=== PATIENT | male | born 1985 | race Caucasian/White ===

== ENCOUNTER 2023-02-19 22:18 | Emergency (ER) | payer BC, OTHER ==
[~2023-02-19] VITALS: Ht 182.9 cm; Wt 104.5 kg
[2023-02-19] MEDS ORDERED: MORPHINE 4 MG/ML 1ML VIAL IV PRN (23:40)
[2023-02-19] MEDS ORDERED: ONDANSETRON 4MG 2ML VIAL IV ONE (23:40)
[2023-02-19 23:44] LABS: LIPASE 41 U/L (12-53)
[2023-02-19 23:46] LABS: ALBUMIN 4.5 G/DL (3.2-5.2); ALKALINE PHOSPHATASE 119 U/L (46-116); ALT/SGPT 49 U/L (7.0-40); AST/SGOT 22 U/L (<34); BILIRUBIN,DIRECT 0.2 MG/DL (<0.4); BILIRUBIN,TOTAL 0.8 MG/DL (0.3-1.2); BLOOD UREA NITROGEN 12 MG/DL (9-23); CALCIUM LEVEL 9.6 MG/DL (8.5-10.1); CARBON DIOXIDE LEVEL 28 MMOL/L (20-31); CHLORIDE LEVEL 100 MMOL/L (98-107); CK-MB VALUE MASS 1.6 NG/ML (<3.6); CPK CREATINE PHOSPHOKINASE 199 U/L (46-171); CREATININE FOR GFR 0.89 MG/DL (0.70-1.30); GLOMERULAR FILTRATION RATE > 60.0 (>60); GLUCOSE, FASTING 124 MG/DL (60-100); POTASSIUM SERUM 3.8 MMOL/L (3.5-5.1); SODIUM LEVEL 139 MMOL/L (136-145); TOTAL PROTEIN 7.4 G/DL (5.7-8.2)
[2023-02-19 23:55] LABS: BASO % 0.2 % (0.0-1.0); EOS # 0.1 10^3/uL (0.0-0.5); EOS % 0.5 % (0.0-3.0); HEMATOCRIT 43.3 % (42.0-52.0); LYMPH # 1.8 10^3/uL (1.5-5.0); LYMPH % 18.1 % (24.0-44.0); MEAN CORPUSCULAR HEMOGLOBIN 32.5 pg (27.0-33.0); MONO # 0.5 10^3/uL (0.0-0.8); MONO % 5.1 % (2.0-8.0); NEUTROPHILS # 7.4 10^3/uL (1.5-8.5); NEUTROPHILS % 75.8 % (36.0-66.0); PLATELET COUNT, AUTOMATED 222 10^3/uL (150-450); RED BLOOD COUNT 4.92 10^6/uL (4.30-6.10); WHITE BLOOD COUNT 9.7 10^3/uL (4.0-10.0)
[2023-02-20] MEDS ORDERED: ISOVUE-370 76% 100ML VIAL As Ordered ONE (00:01)
[2023-02-20 00:58] LABS: RSV AMPLIFICATION NEGATIVE (NEGATIVE)
[2023-02-20 01:48] VITALS: TEMP 98.3
[2023-02-20] MEDS ORDERED: OXYCODONE/APAP 5MG/325MG(HOME DOSE PACK) PO ONE (02:55)
[2023-02-20] MEDS ORDERED: HYOSCYAMINE SULFATE 0.125 MG SUBL TABLET PO ONE (02:55)
[2023-02-20 03:03] VITALS: BP 126/74; O2SAT 100
[2023-02-20] MEDS ORDERED: LEVS0.124 SL (03:20)
== END 2023-02-20 03:46 | disposition home or self-care (01) ==
LOC: M ED 22:18 → EDBD 22:18 → M ED 02-20 03:46
DX: K80.60 Calculus of gallbladder and bile duct with cholecystitis, unspecified, without obstruction (principal)
CPT/HCPCS: 74177; 76705; 80048; 80076; 82550; 82553; 83690; 84484; 85025; 87631; 93005; 96374; 96375; 99284; J2405; Q9967

== ENCOUNTER 2023-03-16 11:11 | Day surgery (SDC) | payer BC, OTHER ==
[~2023-03-16] VITALS: Ht 182.9 cm; Wt 103.0 kg
[~2023-03-16 11:11] MED LIST: HEPARIN SOD (PORCINE) 5000UNITS/ML 1ML VIAL/SYRINGE SQ ONE; INDOCYANINE GREEN 25MG VIAL (IC-GREEN) IV ONE; LEVS0.124 SL; ceFAZolin SOD 2 GM in IV 1 EA IV ONE
[2023-03-16] MEDS ORDERED: INDOCYANINE GREEN 25MG VIAL (IC-GREEN) As Ordered ONE (11:28)
[2023-03-16] MEDS ORDERED: ROCURONIUM BROMIDE 50MG/5ML VIAL As Ordered ONE ×2 (11:42→13:21)
[2023-03-16] MEDS ORDERED: propofoL 200 MG/20 ML VIAL As Ordered ONE (11:42)
[2023-03-16] MEDS ORDERED: LIDOCAINE 2% 100MG/5ML SDV (FOR ANES.) As Ordered ONE (11:42)
[2023-03-16] MEDS ORDERED: fentaNYL 250 MCG/5 ML INJECTION As Ordered ONE (11:43)
[2023-03-16] MEDS ORDERED: MIDAZOLAM INJ 2MG/2ML VIAL As Ordered ONE (11:43)
[2023-03-16] MEDS ORDERED: METOCLOPRAMIDE INJ 10MG/2ML VIAL As Ordered ONE (13:21)
[2023-03-16] MEDS ORDERED: ePHEDrine SULFATE 25 MG/5 ML(5MG/ML) SYRINGE As Ordered ONE (13:21)
[2023-03-16] MEDS ORDERED: KETOROLAC 60MG 2ML VIAL As Ordered ONE (13:21)
[2023-03-16] MEDS ORDERED: ONDANSETRON 4MG 2ML VIAL As Ordered ONE (13:21)
[2023-03-16] MEDS ORDERED: ACETAMINOPHEN 1000MG 100ML IV BAG As Ordered ONE (13:22)
[2023-03-16] MEDS ORDERED: SUGAMMADEX SODIUM 500 MG/5 ML VIAL (BRIDION) As Ordered ONE (13:30)
[2023-03-16] MEDS ORDERED: diphenhydrAMINE 50MG/ML VIAL IV PRN (14:10)
[2023-03-16] MEDS ORDERED: LR 1,000 ML IV SCH (14:10)
[2023-03-16] MEDS ORDERED: METOCLOPRAMIDE INJ 10MG/2ML VIAL IV PRN (14:10)
[2023-03-16] MEDS ORDERED: MEPERIDINE 25 MG/ML 1ML VIAL IV PRN (14:10)
[2023-03-16] MEDS ORDERED: oxyCODONE 5MG TAB PO PRN (14:10)
[2023-03-16] MEDS ORDERED: ONDANSETRON 4MG 2ML VIAL IV PRN (14:10)
[2023-03-16] MEDS ORDERED: HYDROMORPHONE HCL 0.5 MG/ 0.5 ML SYRINGE IV PRN (14:10)
[2023-03-16] MEDS ORDERED: fentaNYL 100 MCG/2 ML INJECTION IV PRN (14:10)
[2023-03-16] MEDS ORDERED: OXYC1TAB23 PO ×2 (14:33→14:39)
[2023-03-16 16:05] VITALS: BP 116/64; TEMP 97; O2SAT 96
== END 2023-03-16 16:10 | disposition home or self-care (01) ==
LOC: M SDC 11:11
PROVIDERS: ATTEND Surgery
DX: K80.10 Calculus of gallbladder with chronic cholecystitis without obstruction (principal)
CPT/HCPCS: 47563; 88304; J0131; J0665; J0690; J1100; J1885; J2250; J2405; J2765; J3010; Q9968; S2900

== ENCOUNTER 2023-03-17 02:38 | Emergency (ER) | payer BC, OTHER ==
[~2023-03-17] VITALS: Ht 182.9 cm; Wt 102.3 kg
[~2023-03-17 02:38] MED LIST changes: -HEPARIN SOD (PORCINE) 5000UNITS/ML 1ML VIAL/SYRINGE SQ ONE; -INDOCYANINE GREEN 25MG VIAL (IC-GREEN) IV ONE; +OXYC1TAB23 PO; -ceFAZolin SOD 2 GM in IV 1 EA IV ONE
[2023-03-17] MEDS ORDERED: NS 1,000 ML IV ONE (02:50)
[2023-03-17] MEDS ORDERED: MORPHINE 4 MG/ML 1ML VIAL IV ONE (03:20)
[2023-03-17] MEDS ORDERED: ONDANSETRON 4MG 2ML VIAL IV ONE (03:20)
[2023-03-17 03:36] LABS: LIPASE 33 U/L (12-53)
[2023-03-17 03:39] LABS: ALBUMIN 4.4 G/DL (3.2-5.2); ALKALINE PHOSPHATASE 105 U/L (46-116); ALT/SGPT 68 U/L (7.0-40); AST/SGOT 53 U/L (<34); BILIRUBIN,TOTAL 1.5 MG/DL (0.3-1.2); BLOOD UREA NITROGEN 15 MG/DL (9-23); CALCIUM LEVEL 9.1 MG/DL (8.5-10.1); CARBON DIOXIDE LEVEL 25 MMOL/L (20-31); CHLORIDE LEVEL 98 MMOL/L (98-107); CREATININE FOR GFR 0.86 MG/DL (0.70-1.30); GLOMERULAR FILTRATION RATE > 60.0 (>60); GLUCOSE, FASTING 151 MG/DL (60-100); POTASSIUM SERUM 4.3 MMOL/L (3.5-5.1); SODIUM LEVEL 135 MMOL/L (136-145); TOTAL PROTEIN 7.5 G/DL (5.7-8.2)
[2023-03-17 03:50] LABS: BASO % 0.1 % (0.0-1.0); HEMATOCRIT 43.9 % (42.0-52.0); LYMPH # 0.8 10^3/uL (1.5-5.0); LYMPH % 5.5 % (24.0-44.0); MEAN CORPUSCULAR HEMOGLOBIN 32.4 pg (27.0-33.0); MEAN CORPUSCULAR HGB CONC 36.4 g/dl (32.0-36.5); MEAN CORPUSCULAR VOLUME 88.9 fl (80.0-96.0); MONO # 0.8 10^3/uL (0.0-0.8); MONO % 5.6 % (2.0-8.0); NEUTROPHILS # 12.9 10^3/uL (1.5-8.5); NEUTROPHILS % 88.4 % (36.0-66.0); PLATELET COUNT, AUTOMATED 258 10^3/uL (150-450); RED BLOOD COUNT 4.94 10^6/uL (4.30-6.10); WHITE BLOOD COUNT 14.6 10^3/uL (4.0-10.0)
[2023-03-17] MEDS ORDERED: ISOVUE-370 76% 100ML VIAL As Ordered ONE (04:26)
[2023-03-17] MEDS ORDERED: PERCOCET 5MG/325MG TAB PO ONE (05:20)
[2023-03-17] MEDS ORDERED: MORPHINE 4 MG/ML 1ML VIAL IM ONE (06:00)
[2023-03-17] MEDS ORDERED: METOCLOPRAMIDE INJ 10MG/2ML VIAL IV ONE (07:15)
[2023-03-17 07:55] LABS: LIPASE 31 U/L (12-53)
[2023-03-17 07:59] LABS: ALBUMIN 3.9 G/DL (3.2-5.2); ALKALINE PHOSPHATASE 95 U/L (46-116); ALT/SGPT 63 U/L (7.0-40); AST/SGOT 40 U/L (<34); BILIRUBIN,DIRECT 0.6 MG/DL (<0.4); BILIRUBIN,TOTAL 1.6 MG/DL (0.3-1.2); CREATININE FOR GFR 0.83 MG/DL (0.70-1.30); GLOMERULAR FILTRATION RATE > 60.0 (>60); TOTAL PROTEIN 6.9 G/DL (5.7-8.2)
[2023-03-17 08:06] LABS: BASO % 0.2 % (0.0-1.0); HEMATOCRIT 41.2 % (42.0-52.0); HEMOGLOBIN 15.3 g/dl (13.5-17.5); LYMPH # 0.8 10^3/uL (1.5-5.0); LYMPH % 6.6 % (24.0-44.0); MEAN CORPUSCULAR HEMOGLOBIN 32.6 pg (27.0-33.0); MEAN CORPUSCULAR VOLUME 87.7 fl (80.0-96.0); MONO # 0.7 10^3/uL (0.0-0.8); MONO % 5.6 % (2.0-8.0); NEUTROPHILS # 10.8 10^3/uL (1.5-8.5); PLATELET COUNT, AUTOMATED 249 10^3/uL (150-450); WHITE BLOOD COUNT 12.4 10^3/uL (4.0-10.0)
[2023-03-17 08:10] LABS: MEAN CORPUSCULAR HGB CONC 37.1 g/dl (32.0-36.5)
[2023-03-17 10:06] VITALS: BP 125/60; TEMP 98.9; O2SAT 98
== END 2023-03-17 10:28 | disposition home or self-care (01) ==
LOC: M ED 02:38
DX: G89.18 Other acute postprocedural pain (principal); R10.30 Lower abdominal pain, unspecified; Z90.49 Acquired absence of other specified parts of digestive tract
CPT/HCPCS: 74177; 80053; 80076; 81001; 82565; 83690; 85025; 96361; 96372; 96374; 96375; 99284; J2405; J2765; Q9967

== ENCOUNTER 2023-03-17 13:33 | Inpatient (IN) | payer BC, OTHER ==
[~2023-03-17] VITALS: Ht 182.9 cm; Wt 97.7 kg
[2023-03-17] MEDS ORDERED: MORPHINE 2 MG/ML 1ML VIAL IV PRN (14:30)
[2023-03-17] MEDS ORDERED: ONDANSETRON 4MG 2ML VIAL IV PRN ×2 (14:30→20:45)
[2023-03-17] MEDS ORDERED: PERCOCET 5MG/325MG TAB PO PRN (14:30)
[2023-03-17] MEDS: LR 1,000 ML IV SCH ×2 (14:44→22:59)
[2023-03-17] MEDS: GASTROGRAFIN SOLUTION 30ML PO SCH ×2 (14:57→15:41)
[2023-03-17] MEDS: PANTOPRAZOLE 40MG VIAL IV SCH (14:57)
[2023-03-17 15:26] LABS: LIPASE 34 U/L (12-53)
[2023-03-17 15:28] LABS: AMYLASE 81 U/L (30-118)
[2023-03-17 15:31] LABS: ALBUMIN 3.7 G/DL (3.2-5.2); ALKALINE PHOSPHATASE 88 U/L (46-116); ALT/SGPT 57 U/L (7.0-40); AST/SGOT 31 U/L (<34); BILIRUBIN,TOTAL 1.7 MG/DL (0.3-1.2); BLOOD UREA NITROGEN 11 MG/DL (9-23); CALCIUM LEVEL 8.5 MG/DL (8.5-10.1); CARBON DIOXIDE LEVEL 29 MMOL/L (20-31); CHLORIDE LEVEL 101 MMOL/L (98-107); CREATININE FOR GFR 0.83 MG/DL (0.70-1.30); GLOMERULAR FILTRATION RATE > 60.0 (>60); GLUCOSE, FASTING 123 MG/DL (60-100); POTASSIUM SERUM 3.8 MMOL/L (3.5-5.1); SODIUM LEVEL 137 MMOL/L (136-145); TOTAL PROTEIN 6.3 G/DL (5.7-8.2)
[2023-03-17] MEDS ORDERED: ISOVUE-370 76% 100ML VIAL As Ordered ONE (16:29)
[2023-03-17 17:25] LABS: HEMATOCRIT 39.7 % (42.0-52.0); HEMOGLOBIN 14.5 g/dl (13.5-17.5); MEAN CORPUSCULAR HEMOGLOBIN 32.6 pg (27.0-33.0); MEAN CORPUSCULAR HGB CONC 36.5 g/dl (32.0-36.5); MEAN CORPUSCULAR VOLUME 89.2 fl (80.0-96.0); PLATELET COUNT, AUTOMATED 213 10^3/uL (150-450); RED BLOOD COUNT 4.45 10^6/uL (4.30-6.10); WHITE BLOOD COUNT 10.8 10^3/uL (4.0-10.0)
[2023-03-17] MEDS ORDERED: SUCCINYLCHOLINE 100MG/5ML SYRINGE As Ordered ONE (18:01)
[2023-03-17] MEDS ORDERED: SUGAMMADEX SODIUM 500 MG/5 ML VIAL (BRIDION) As Ordered ONE (18:02)
[2023-03-17] MEDS ORDERED: metroNIDAZOLE 500 MG in IV 1 EA IV ONE (18:15)
[2023-03-17] MEDS ORDERED: ceFAZolin SOD 2 GM in IV 1 EA IV ONE (18:15)
[2023-03-17] MEDS ORDERED: ceFAZolin 1GM VIAL ONE (18:30)
[2023-03-17] MEDS ORDERED: metroNIDAZOLE/NACL 500MG(5MG/ML) 100ML BAG ONE (18:30)
[2023-03-17] MEDS ORDERED: metroNIDAZOLE/NACL 500MG(5MG/ML) 100ML BAG As Ordered ONE (18:57)
[2023-03-17] MEDS ORDERED: ceFAZolin 1GM VIAL As Ordered ONE (18:57)
[2023-03-17] MEDS ORDERED: ACETAMINOPHEN 1000MG 100ML IV BAG As Ordered ONE (19:31)
[2023-03-17] MEDS ORDERED: KETOROLAC 60MG 2ML VIAL As Ordered ONE (19:34)
[2023-03-17] MEDS ORDERED: fentaNYL 100 MCG/2 ML INJECTION As Ordered ONE (19:35)
[2023-03-17] MEDS ORDERED: ONDANSETRON 4MG 2ML VIAL As Ordered ONE (19:35)
[2023-03-17] MEDS ORDERED: MIDAZOLAM INJ 2MG/2ML VIAL As Ordered ONE (19:35)
[2023-03-17] MEDS ORDERED: LIDOCAINE 2% 100MG/5ML SDV (FOR ANES.) As Ordered ONE (19:35)
[2023-03-17] MEDS ORDERED: dexmedeTOMIDine (4MCG/ML)200MCG/50ML BTL (PRECEDEX) As Ordered ONE (19:35)
[2023-03-17] MEDS ORDERED: propofoL 200 MG/20 ML VIAL As Ordered ONE (19:35)
[2023-03-17] MEDS ORDERED: ROCURONIUM BROMIDE 50MG/5ML VIAL As Ordered ONE (19:35)
[2023-03-17] MEDS ORDERED: METOCLOPRAMIDE INJ 10MG/2ML VIAL As Ordered ONE (20:23)
[2023-03-17] MEDS ORDERED: HYDROMORPHONE HCL 0.5 MG/ 0.5 ML SYRINGE IV PRN (20:45)
[2023-03-17] MEDS ORDERED: oxyCODONE 5MG TAB PO PRN (20:45)
[2023-03-17] MEDS ORDERED: LR 1,000 ML IV SCH (20:45)
[2023-03-17] MEDS ORDERED: METOCLOPRAMIDE INJ 10MG/2ML VIAL IV PRN (20:45)
[2023-03-17] MEDS ORDERED: fentaNYL 100 MCG/2 ML INJECTION IV PRN (20:45)
[2023-03-17] MEDS ORDERED: ACETAMINOPHEN *IV* 1,000 MG in IV 1 EA IV ONE (21:20)
[2023-03-17 22:00] VITALS: BP 124/72; TEMP 97.3; O2SAT 100
[2023-03-17 22:30] VITALS: BP 121/75; TEMP 97.9; O2SAT 92
[2023-03-17 23:29] VITALS: BP 89/52; TEMP 96.8; O2SAT 96
[2023-03-17 23:32] VITALS: BP 118/62
[2023-03-18] VITALS (7 sets, daily range): BP systolic 104–141; BP diastolic 53–75; TEMP 97.3–98.4; O2SAT 93–100
[2023-03-18] MEDS: PIPERACILLIN/TAZOBACTAM SOD 3.375 GM in D5W MINI-BAG PLUS 50 ML IV SCH ×4 (02:00→18:42)
[2023-03-18 05:40] LABS: HEMATOCRIT 37.3 % (42.0-52.0); HEMOGLOBIN 13.1 g/dl (13.5-17.5); MEAN CORPUSCULAR HGB CONC 35.1 g/dl (32.0-36.5); PLATELET COUNT, AUTOMATED 173 10^3/uL (150-450)
[2023-03-18 06:04] LABS: BLOOD UREA NITROGEN 12 MG/DL (9-23); CALCIUM LEVEL 8.3 MG/DL (8.5-10.1); CARBON DIOXIDE LEVEL 29 MMOL/L (20-31); CHLORIDE LEVEL 104 MMOL/L (98-107); CREATININE FOR GFR 0.85 MG/DL (0.70-1.30); GLOMERULAR FILTRATION RATE > 60.0 (>60); GLUCOSE, FASTING 127 MG/DL (60-100); POTASSIUM SERUM 4.3 MMOL/L (3.5-5.1); SODIUM LEVEL 141 MMOL/L (136-145)
[2023-03-18] MEDS: LR 1,000 ML IV SCH ×2 (07:04→15:04)
[2023-03-18] MEDS ORDERED: ACETAMINOPHEN 500 MG TAB PO PRN (08:25)
[2023-03-18] MEDS: PANTOPRAZOLE 40MG VIAL IV SCH (08:41)
[2023-03-18] MEDS: ENOXAPARIN 40MG/0.4ML SYRINGE (J1650 PER 10MG) SC SCH (12:37)
[2023-03-18] MEDS: SIMETHICONE 80MG CHEW TAB PO PRN (20:37)
[2023-03-19] MEDS: LR 1,000 ML IV SCH ×3 (00:33→16:52)
[2023-03-19] MEDS: PIPERACILLIN/TAZOBACTAM SOD 3.375 GM in D5W MINI-BAG PLUS 50 ML IV SCH ×5 (00:33→23:03)
[2023-03-19 03:54] VITALS: BP 139/81; TEMP 98.2; O2SAT 93
[2023-03-19 08:22] LABS: HEMATOCRIT 39.1 % (42.0-52.0); HEMOGLOBIN 13.8 g/dl (13.5-17.5); MEAN CORPUSCULAR HEMOGLOBIN 32.4 pg (27.0-33.0); MEAN CORPUSCULAR HGB CONC 35.3 g/dl (32.0-36.5); MEAN CORPUSCULAR VOLUME 91.8 fl (80.0-96.0); PLATELET COUNT, AUTOMATED 191 10^3/uL (150-450); RED BLOOD COUNT 4.26 10^6/uL (4.30-6.10); WHITE BLOOD COUNT 8.8 10^3/uL (4.0-10.0)
[2023-03-19 08:41] VITALS: BP 128/78; TEMP 98; O2SAT 94
[2023-03-19 08:46] LABS: BLOOD UREA NITROGEN 11 MG/DL (9-23); CALCIUM LEVEL 8.4 MG/DL (8.5-10.1); CARBON DIOXIDE LEVEL 29 MMOL/L (20-31); CHLORIDE LEVEL 102 MMOL/L (98-107); GLOMERULAR FILTRATION RATE > 60.0 (>60); GLUCOSE, FASTING 94 MG/DL (60-100); POTASSIUM SERUM 3.5 MMOL/L (3.5-5.1); SODIUM LEVEL 139 MMOL/L (136-145)
[2023-03-19] MEDS: ENOXAPARIN 40MG/0.4ML SYRINGE (J1650 PER 10MG) SC SCH (09:19)
[2023-03-19] MEDS: PANTOPRAZOLE 40MG VIAL IV SCH (10:21)
[2023-03-19] MEDS: SIMETHICONE 80MG CHEW TAB PO PRN (10:29)
[2023-03-19 12:00] VITALS: BP 152/80; TEMP 100.2; O2SAT 94
[2023-03-19] MEDS ORDERED: ACETAMINOPHEN *IV* 1,000 MG in IV 1 EA IV ONE (15:00)
[2023-03-19 16:00] VITALS: BP 109/60; TEMP 98.2; O2SAT 94
[2023-03-19 20:00] VITALS: BP 115/58; TEMP 98.1; O2SAT 96
[2023-03-20] MEDS: LR 1,000 ML IV SCH (00:29)
[2023-03-20 04:00] VITALS: BP 117/60; TEMP 97.9; O2SAT 96
[2023-03-20] MEDS: PIPERACILLIN/TAZOBACTAM SOD 3.375 GM in D5W MINI-BAG PLUS 50 ML IV SCH ×3 (05:03→18:01)
[2023-03-20] MEDS: SIMETHICONE 80MG CHEW TAB PO PRN (06:02)
[2023-03-20 07:58] LABS: HEMATOCRIT 37.8 % (42.0-52.0); HEMOGLOBIN 13.6 g/dl (13.5-17.5); MEAN CORPUSCULAR HEMOGLOBIN 32.8 pg (27.0-33.0); MEAN CORPUSCULAR VOLUME 91.1 fl (80.0-96.0); PLATELET COUNT, AUTOMATED 177 10^3/uL (150-450); RED BLOOD COUNT 4.15 10^6/uL (4.30-6.10); WHITE BLOOD COUNT 7.2 10^3/uL (4.0-10.0)
[2023-03-20 08:26] LABS: BLOOD UREA NITROGEN 13 MG/DL (9-23); CALCIUM LEVEL 8.1 MG/DL (8.5-10.1); CARBON DIOXIDE LEVEL 30 MMOL/L (20-31); CHLORIDE LEVEL 104 MMOL/L (98-107); CREATININE FOR GFR 0.89 MG/DL (0.70-1.30); GLOMERULAR FILTRATION RATE > 60.0 (>60); GLUCOSE, FASTING 90 MG/DL (60-100); POTASSIUM SERUM 3.8 MMOL/L (3.5-5.1); SODIUM LEVEL 140 MMOL/L (136-145)
[2023-03-20] MEDS: ENOXAPARIN 40MG/0.4ML SYRINGE (J1650 PER 10MG) SC SCH (09:40)
[2023-03-20] MEDS: PANTOPRAZOLE 40MG VIAL IV SCH (09:40)
[2023-03-20 10:30] VITALS: BP 138/87; TEMP 98.6; O2SAT 93
[2023-03-20 14:30] VITALS: BP 131/82; TEMP 98.2; O2SAT 94
[2023-03-20 22:00] VITALS: BP 127/78; TEMP 98.6; O2SAT 94
[2023-03-21] MEDS: PIPERACILLIN/TAZOBACTAM SOD 3.375 GM in D5W MINI-BAG PLUS 50 ML IV SCH ×4 (00:10→18:34)
[2023-03-21 02:00] VITALS: BP 119/71; TEMP 98.4; O2SAT 95
[2023-03-21 06:00] VITALS: BP 123/76; TEMP 98.1; O2SAT 96
[2023-03-21 06:25] LABS: HEMATOCRIT 38.1 % (42.0-52.0); HEMOGLOBIN 13.7 g/dl (13.5-17.5); MEAN CORPUSCULAR HEMOGLOBIN 32.5 pg (27.0-33.0); MEAN CORPUSCULAR VOLUME 90.3 fl (80.0-96.0); PLATELET COUNT, AUTOMATED 207 10^3/uL (150-450); RED BLOOD COUNT 4.22 10^6/uL (4.30-6.10); WHITE BLOOD COUNT 7.1 10^3/uL (4.0-10.0)
[2023-03-21 06:43] LABS: BLOOD UREA NITROGEN 12 MG/DL (9-23); CALCIUM LEVEL 8.3 MG/DL (8.5-10.1); CARBON DIOXIDE LEVEL 28 MMOL/L (20-31); CHLORIDE LEVEL 103 MMOL/L (98-107); CREATININE FOR GFR 0.81 MG/DL (0.70-1.30); GLOMERULAR FILTRATION RATE > 60.0 (>60); GLUCOSE, FASTING 82 MG/DL (60-100); POTASSIUM SERUM 3.7 MMOL/L (3.5-5.1); SODIUM LEVEL 139 MMOL/L (136-145)
[2023-03-21] MEDS: PANTOPRAZOLE 40MG VIAL IV SCH (09:03)
[2023-03-21] MEDS: ENOXAPARIN 40MG/0.4ML SYRINGE (J1650 PER 10MG) SC SCH (09:03)
[2023-03-21] MEDS ORDERED: SIMETHICONE 80MG CHEW TAB PO PRN (09:50)
[2023-03-21 14:00] VITALS: BP 119/77; TEMP 98.8; O2SAT 98
[2023-03-21 21:15] VITALS: BP 123/76; TEMP 99; O2SAT 98
[2023-03-22] MEDS: PIPERACILLIN/TAZOBACTAM SOD 3.375 GM in D5W MINI-BAG PLUS 50 ML IV SCH ×4 (01:00→18:30)
[2023-03-22 06:00] VITALS: BP 122/60; TEMP 98.2; O2SAT 98
[2023-03-22] MEDS: ENOXAPARIN 40MG/0.4ML SYRINGE (J1650 PER 10MG) SC SCH (09:00)
[2023-03-22] MEDS: PANTOPRAZOLE 40MG VIAL IV SCH (09:00)
[2023-03-22 10:10] VITALS: BP 115/71; TEMP 98.1; O2SAT 97
[2023-03-22 14:07] VITALS: BP 113/71; TEMP 98.4; O2SAT 95
[2023-03-22 18:19] VITALS: BP 115/71; TEMP 98.4; O2SAT 95
[2023-03-22 22:00] VITALS: BP 117/74; TEMP 98.2; O2SAT 97
[2023-03-23] MEDS: PIPERACILLIN/TAZOBACTAM SOD 3.375 GM in D5W MINI-BAG PLUS 50 ML IV SCH ×2 (00:27→05:14)
[2023-03-23 06:00] VITALS: BP 111/66; TEMP 97.5; O2SAT 98
[2023-03-23] MEDS: ENOXAPARIN 40MG/0.4ML SYRINGE (J1650 PER 10MG) SC SCH (08:25)
[2023-03-23] MEDS: PANTOPRAZOLE 40MG VIAL IV SCH (08:25)
== END 2023-03-23 10:50 | disposition home or self-care (01) | DRG 791 ==
LOC: M ED 13:33 → EDBD 13:33 → M ED INP 14:27 → M PCU 21:55 → M MS5PR 03-20 07:56 → OBSVTOIN 03-20 11:15
PROVIDERS: ADMIT Surgery; ATTEND Surgery
PROC: 8E0W4CZ Robotic Assisted Procedure of Trunk Region, Percutaneous Endoscopic Approach (ICD-10-PCS; 2023-03-17)
PROC: 0DQ84ZZ Repair Small Intestine, Percutaneous Endoscopic Approach (ICD-10-PCS; principal; 2023-03-17 18:30)
DX: K91.71 Accidental puncture and laceration of a digestive system organ or structure during a digestive system procedure (principal); K56.7 Ileus, unspecified